=== PATIENT | female | born 1985 | race Caucasian/White ===

== ENCOUNTER 2019-11-27 16:30 | Emergency (ER) | payer MEDICAID, OTHER ==
[~2019-11-27] VITALS: Ht 154.9 cm; Wt 89.9 kg
[~2019-11-27 16:30] MED LIST: AZEL205.2 NAS; BENZ142C7 TP; CHOL20002 PO; CLEOCIN; LEVO1TAB6 PO; OLOPATADINE HCL; OMEP20CA20 PO
--- NOTE | 2019-11-27 17:22 | NUR ---
1ST CONTACT C PT. RESTING ON CART IN NAD. STATES "SINUS H/A" & HTN AT HOME ~1MONTH. PT HAS BEEN CHECKING BP AT HOME & SEEN AT YESTERDAY/ TRYING SEVERAL OTC RX S RELIEF FOR SINUS & IRIZARRY. AT . WILL CTM.
--- NOTE | 2019-11-27 17:46 | NUR ---
PHLEB AT BS.
[2019-11-27 17:59] LABS: BASOPHILS # (AUTO) 0.03 x10^3/uL (0-0.1); BASOPHILS % (AUTO) 0 % (0-1); EOSINOPHILS # (AUTO) 0.13 x10^3/uL (0-0.4); EOSINOPHILS % (AUTO) 1 % (1-7); LYMPHOCYTES # (AUTO) 2.25 x10^3/uL (1-3.4); LYMPHOCYTES % (AUTO) 24 % (22-44); MD NO; MEAN CORPUSCULAR HEMOGLOBIN 29.4 pg (27.0-34.8); MEAN CORPUSCULAR HGB CONC 33.2 g/dL (32.4-35.8); MEAN CORPUSCULAR VOLUME 88.7 fL (80-100); MEAN PLATELET VOLUME 9.9 fL (7.4-10.4); MONOCYTES # (AUTO) 0.44 x10^3/uL (0.2-0.8); MONOCYTES % (AUTO) 5 % (2-9); NEUTROPHILS % (AUTO) 70 % (42-75); PLATELET COUNT 232 x10^3/uL (130-400); RED BLOOD COUNT 5.11 x10^6/uL (3.82-5.3); RED CELL DISTRIBUTION WIDTH 15.7 % (9.6-15.2)
[2019-11-27 18:09] LABS: ANION GAP 8 mmol/L (5-15); CALCIUM 9.4 mg/dL (8.5-10.1); CHLORIDE 107 mmol/L (98-107); CREATININE 0.71 mg/dL (0.55-1.02)
[2019-11-27 18:29] VITALS: BP 142/95
== END 2019-11-27 19:02 | disposition home or self-care (01) ==
LOC: ED 17:30
DX: I10 Essential (primary) hypertension (principal)
CPT/HCPCS: 36415; 80048; 85025; 93005; 99284